=== PATIENT | male | born 1970 | race Caucasian/White ===

== ENCOUNTER 2019-05-10 07:51 | Day surgery (SDC) | payer SELFPAY ==
[~2019-05-10] VITALS: Ht 182.9 cm; Wt 87.0 kg
[2019-05-10] MEDS ORDERED: GLUCOPHAGE500 MG/TAB PO (08:17)
[2019-05-10] MEDS ORDERED: CANA300T PO (08:18)
[2019-05-10] MEDS ORDERED: LIPITOR 40MG TA40 MG PO (08:18)
[2019-05-10] MEDS ORDERED: VASCEPA0.5 GM PO (08:19)
[2019-05-10] MEDS ORDERED: LANTUS100 U/ML SQ (08:20)
[2019-05-10] MEDS ORDERED: MELATONIN5 M1 PO (08:22)
[2019-05-10 08:42] VITALS: BP 124/90; PULSE 72; TEMP 98
[2019-05-10] MEDS ORDERED: PRILOSEC 20MG20 MG PO (10:03)
[2019-05-10] MEDS ORDERED: AMOXICILLIN 50500 MG PO (10:04)
[2019-05-10] MEDS ORDERED: BIAXIN 500MG T500 MG PO (10:05)
[2019-05-10 10:15] VITALS: BP 125/84; PULSE 81; TEMP 97.9
--- NOTE | 2019-05-10 10:15 | NUR ---
Patient arrives back to [facility] alert, denies pain or nausea. Patient ambulates from cart to chair with standby assist and without any complications. Patient monitor applied, vitals stable. Patient's spouse at bedside. Patient given water (can swallow without any difficulties).
--- NOTE | 2019-05-10 10:25 | NUR ---
Dr Lu into see patient at this time.
[2019-05-10 10:30] VITALS: BP 127/84; PULSE 75
[2019-05-10 10:45] VITALS: BP 121/83; PULSE 69
--- NOTE | 2019-05-10 10:45 | NUR ---
Patient reports that he is feeling good and is able to drink water without any complications. Patient given pudding at this time. Vitals stable.
--- NOTE | 2019-05-10 11:05 | NUR ---
Dismissal instructions gone over with patient and patient's spouse. Both verbalize understanding and all questions answered.
--- NOTE | 2019-05-10 11:10 | NUR ---
Patient discharged to home via ambulation to patient enterance with spouse. Patient and spouse leave thanking staff for services.
== END 2019-05-10 11:10 | disposition home or self-care (01) ==
LOC: SDCO 07:51 → EDBD 10:00 → SDCO 10:00
DX: K21.0 Gastro-esophageal reflux disease with esophagitis (principal); K22.2 Esophageal obstruction; K44.9 Diaphragmatic hernia without obstruction or gangrene; K29.30 Chronic superficial gastritis without bleeding; K29.80 Duodenitis without bleeding; Z79.4 Long term (current) use of insulin
CPT/HCPCS: C1726; J2250; J3010; J7042

== ENCOUNTER → 2020-03-28 | Outpatient (CLI) | payer OTHER ==
[~2020-03-28] MED LIST: AMOXICILLIN 50500 MG PO; BIAXIN 500MG T500 MG PO; CANA300T PO; GLUCOPHAGE500 MG/TAB PO; LANTUS100 U/ML SQ; LIPITOR 40MG TA40 MG PO; MELATONIN5 M1 PO; PRILOSEC 20MG20 MG PO; VASCEPA0.5 GM PO
== END ==
LOC: COL.RAD 06:32
DX: R11.0 Nausea (principal)
CPT/HCPCS: A9541

== ENCOUNTER → 2020-04-17 | Outpatient (CLI) | payer OTHER | LOC: COL.RAD 13:36 | DX: E22.1 Hyperprolactinemia (principal) | CPT/HCPCS: A9585 ==

== ENCOUNTER 2020-08-29 09:00 | Emergency (ER) | payer OTHER ==
[~2020-08-29] VITALS: Ht 182.9 cm; Wt 93.6 kg
[2020-08-29 09:03] VITALS: TEMP 97
[2020-08-29 09:33] LABS: BASO # 0.1 (0.0-0.2); BASO % 0.7 % (0.0-2.0); EOS # 0.1 (0.0-0.7); EOS % 0.8 % (0-4.0); GRAN % 68.3 % (42.2-75.2); HEMATOCRIT 45.6 % (42.0-52.0); HEMOGLOBIN 15.5 g/dl (13.5-18.0); LYMPH % 22.8 % (20.0-51.0); MEAN CELL VOLUME 91 fl (80.0-100.0); MEAN CORPUSCULAR HEMOGLOBIN 31 pg (27.0-31.0); MEAN CORPUSCULAR HGB CONC 34 g/dl (33.0-37.0); MEAN PLATELET VOLUME 9.9 fl (7.4-10.4); MONO # 0.6 (0.1-0.6); MONO % 6.7 % (1.7-9.3); PLATELET COUNT 195 K/mm3 (130-400); RED BLOOD COUNT 4.99 M/mm3 (4.20-5.60); REDCELL DISTRIBUTION WIDTH-CV 13.1 % (11.5-14.5)
[2020-08-29 09:41] LABS: PROTHROMBIN TIME 10.6 SECONDS (9.7-12.8)
[2020-08-29 09:43] LABS: ALANINE AMINOTRANSFERASE 52 U/L (4-49); ALBUMIN 3.9 gm/dL (3.5-5.0); ALKALINE PHOSPHATASE 50 U/L (50-136); ANION GAP 10 mmol/L (7-16); AST,SGOT 41 U/L (15-37); BILIRUBIN,TOTAL 0.7 mg/dL (0.0-1.0); BLOOD UREA NITROGEN 17 mg/dL (9-20); CALCIUM 8.9 mg/dL (8.4-10.2); CARBON DIOXIDE 26 mmol/L (22-30); CHLORIDE 104 mmol/L (98-107); CREATININE, serum 0.83 (0.66-1.25); GLUCOSE 200 mg/dL (74-106); PARTIAL THROMBOPLASTIN TIME 31.2 SECONDS (26.0-37.0); POTASSIUM 4.1 mmol/L (3.4-5.0); SODIUM 140 mmol/L (137-145); TOTAL PROTEIN 6.3 gm/dL (6.4-8.2)
[2020-08-29 09:55] LABS: TROPONIN-I < 0.012 ng/mL (0.000-0.035)
[2020-08-29 15:48] VITALS: BP 132/93; PULSE 84
[2020-08-30] MEDS ORDERED: TOUJEO300 U/ML SQ (07:24)
[2020-08-30] MEDS ORDERED: CLOMID50 MG PO (07:28)
[2020-08-30] MEDS ORDERED: PRILOSEC 20MG20 MG PO (07:30)
== END 2020-08-29 15:15 | disposition home or self-care (01) ==
LOC: COL.ER 09:00
PROVIDERS: Family Medicine
DX: R07.89 Other chest pain (principal); E11.9 Type 2 diabetes mellitus without complications; Z79.4 Long term (current) use of insulin

== ENCOUNTER 2020-08-30 07:03 | Inpatient (IN) | payer OTHER ==
[~2020-08-30] VITALS: Ht 182.9 cm; Wt 88.2 kg
[2020-08-30] MEDS ORDERED: TOUJEO300 U/ML SQ (07:24)
[2020-08-30] MEDS ORDERED: CLOMID50 MG PO (07:28)
[2020-08-30] MEDS ORDERED: PRILOSEC 20MG20 MG PO (07:30)
[2020-08-30 07:31] VITALS: BP 154/89; PULSE 91
[2020-08-30 08:54] VITALS: BP 170/86; PULSE 81
[2020-08-30 08:56] VITALS: BP 177/92; PULSE 122
[2020-08-30 08:57] VITALS: BP 164/95; PULSE 108
[2020-08-30 08:58] VITALS: BP 160/91; PULSE 105
[2020-08-30 08:59] VITALS: BP 160/90; PULSE 102
[2020-08-31] VITALS (10 sets, daily range): BP systolic 120–151; BP diastolic 68–94; PULSE 79–95; TEMP 97.9–98.5
[2020-08-31] MEDS ORDERED: ERGOCALCIFER50000 IU PO (13:31)
[2020-08-31] MEDS ORDERED: PRIL40 PO (13:33)
[2020-08-31] MEDS ORDERED: TRULICITY1.5 MG/0.5 SQ (13:33)
[2020-08-31] MEDS ORDERED: LIPITOR 80MG80 MG PO (13:33)
[2020-08-31 14:19] LABS: BASO % 0.4 % (0.0-2.0); EOS # 0.1 (0.0-0.7); EOS % 0.8 % (0-4.0); GRAN # 7.6 (1.4-6.5); GRAN % 69.8 % (42.2-75.2); HEMATOCRIT 44.6 % (42.0-52.0); HEMOGLOBIN 15.3 g/dl (13.5-18.0); LYMPH # 2.4 (1.2-3.4); LYMPH % 22.5 % (20.0-51.0); MEAN CELL VOLUME 91 fl (80.0-100.0); MEAN CORPUSCULAR HEMOGLOBIN 31 pg (27.0-31.0); MEAN CORPUSCULAR HGB CONC 34 g/dl (33.0-37.0); MONO # 0.6 (0.1-0.6); MONO % 5.9 % (1.7-9.3); PLATELET COUNT 212 K/mm3 (130-400); RED BLOOD COUNT 4.93 M/mm3 (4.20-5.60)
[2020-08-31 14:21] LABS: PROTHROMBIN TIME 10.9 SECONDS (9.7-12.8)
[2020-08-31 14:31] LABS: PARTIAL THROMBOPLASTIN TIME 32.9 SECONDS (26.0-37.0)
[2020-08-31 14:38] LABS: ALBUMIN 4.1 gm/dL (3.5-5.0); BILIRUBIN,TOTAL 0.7 mg/dL (0.0-1.0); CALCIUM 9.4 mg/dL (8.4-10.2); CHOLESTEROL RISK RATIO 3.6; CREATININE, serum 0.81 (0.66-1.25); MAGNESIUM 1.8 mg/dL (1.6-2.3); POTASSIUM 4.4 mmol/L (3.4-5.0); TOTAL PROTEIN 6.5 gm/dL (6.4-8.2)
[2020-08-31 15:26] LABS: TROPONIN-I 0.18 ng/mL (0.000-0.035)
--- NOTE | 2020-08-31 16:30 | NUR ---
Patient alert and oriented. He was transported by EMS from Dr Kaur office after complaining of chest pain. Patient said he had a stress test done on the 08/30/20 which was positive. Patient denies any chest pain since admission. IV started on RA. Hepxa 0.00, PT 10.9, inr 1.0, ptt 32.9, Troponin I 0.180 Patient received 4,000units bolus with 1000units/hr drip rate. Patient signed consent for [facility], scheduled for today. Patient resting in bed at this time.
--- NOTE | 2020-08-31 19:48 | NUR ---
BEDSIDE shift report received. pt AOX4. denies chest pain. confirmed heart cath still on for tonight. NPO since 1800 yesterday per pt. denies chest pain, n/v, any pain. steady independent ambulation. picked up by labor relations representative @ 1949. IVF @ 30. heparin drip dc'd by labor relations representative nurse. no other coMplaints at this time. BG 89
--- NOTE | 2020-08-31 20:10 | NUR ---
SEE MERGE FOR ALL MEDICATION ADMINISTRATION TIMES, INTRA AND POST SEDATION ASSESSMENTS
--- NOTE | 2020-08-31 22:39 | NUR ---
PT returned from fish hatchery laborer around 2140 and starteed on post op vitals. rt femoral site with angioseal C/D/I gauze. pulses WNL. pt denies pain. bed flat. pt given sandwich pack and drinks. meds given. to remain on bedrest as ordered. VS stable as charted. will cont to monitor
--- NOTE | 2020-08-31 23:34 | NUR ---
2HR BEDREST COMPLETE @ 2330. PT RESTING IN BED. URINAL AT BEDSIDE. NO BLEEDING TO RT FEMORAL SITE. PT AWARE TO TAKE IT EASY. VS CHARTED
--- NOTE | 2020-08-31 23:37 | NUR ---
Midnight BG 160 but pt refused SSI due to worry may decrease further. ate dinner @ 2230 post heart cath. will recheck @ 0400 unless otherwise warranted.
[2020-09-01] VITALS (8 sets, daily range): BP systolic 128–140; BP diastolic 57–84; PULSE 65–88; TEMP 97.9–98.5
--- NOTE | 2020-09-01 00:34 | NUR ---
Post cath checks done. pt sleeping. site dressing C/D/I. NO hematoma noted/ will cont to monitor
--- NOTE | 2020-09-01 03:39 | NUR ---
SMALL AREA OF BLEEDING NOTED TO ANGIOSEAL DRESSING TO RT GROIN. MANUAL PRESSURE HELD. NO HEMATOMA NOTED TO SITE. SCANT TENDERNESS. PEDAL PULSES PALPABLE AND COLOR UNCHANGED. VS STABLE
--- NOTE | 2020-09-01 05:22 | NUR ---
Small bleeding area to rt femoral site unchanged. no hematoma noted. pt denies increased pain to site
--- NOTE | 2020-09-01 07:45 | NUR ---
shift report given to oncoming nurse Shy. both nurses assessed heart cath site. dressing saturation unchanged. pedal pulses palpable and color WNL. pt able to move leg
--- NOTE | 2020-09-01 09:19 | NUR ---
PATIENT ASSESSMENT COMPLETED. HE IS AWAKE IN BED. DENIES ANY PAIN WAS ABLE TO GET UP TO THE RESTROOM WITH LITTLE DISCOMFORT TO RIGHT FEMORAL AREA. NO FURTHER BLEEDING NOTED TO THIS AREA. BLOOD SPOT WAS CIRCLED FROM LAST NIGHT.
[2020-09-01 10:53] LABS: HEMATOCRIT 43.9 % (42.0-52.0); HEMOGLOBIN 15.1 g/dl (13.5-18.0); MEAN CELL VOLUME 92 fl (80.0-100.0); MEAN CORPUSCULAR HEMOGLOBIN 32 pg (27.0-31.0); MEAN CORPUSCULAR HGB CONC 34 g/dl (33.0-37.0); MEAN PLATELET VOLUME 10.1 fl (7.4-10.4); PLATELET COUNT 194 K/mm3 (130-400); RED BLOOD COUNT 4.78 M/mm3 (4.20-5.60); REDCELL DISTRIBUTION WIDTH-CV 13.3 % (11.5-14.5)
[2020-09-01 11:00] LABS: CALCIUM 9.2 mg/dL (8.4-10.2); CREATININE, serum 0.79 (0.66-1.25); MAGNESIUM 1.9 mg/dL (1.6-2.3)
[2020-09-01] MEDS ORDERED: BRILINTA90 MG PO (11:23)
[2020-09-01] MEDS ORDERED: ASPIRIN 81M81 MG/TA2 PO (11:24)
[2020-09-01] MEDS ORDERED: NITROSTAT0.4 MG/TAB SL (11:24)
[2020-09-01 11:32] LABS: EOSINOPHIL 1 % (0-4); NEUTROPHILS 75 % (42.0-75.2); PLATELET ESTIMATE NORMAL (NORMAL)
[2020-09-01] MEDS ORDERED: TOPROL XL 25MG25 MG PO (11:32)
[2020-09-01 11:33] LABS: LYMPHOCYTE 18 % (20.0-51.0)
--- NOTE | 2020-09-01 12:47 | NUR ---
Wash [employer] Cooler Operator offered prayer and support with patient.
--- NOTE | 2020-09-01 13:45 | NUR ---
PATIENT DISCHARGED TO HOME WITH BELONGINGS. HE DOES HAVE SOME DISCOMFORT TO THE RIGHT GROIN SITE ENCOURAGED ICE WHEN HE GETS HOME. INSTRUCTIONS HAVE BEEN REVIEWED HE DENIES FURTHER QUESTIONS AND WILL MAKE FOLLOW UPS ORDERED. NO FURTHER QUESTIONS AT THIS TIME.
--- NOTE | 2020-09-01 15:25 | NUR ---
SW met with patient to complete discharge. Patient stated that he lived in [place] with his [place] [phone]. Patient stated that he does not utilize any DME and is independent with ADL's. Patient states that is PCP is Dr. Mendiola, obtains medications from [facility] and is able to afford his medications at this time. Patient states that he does not wish to appoint anyone as his DPOA-HC at this time. Patient states that he plans to go back to his home upon DC. SW will continue to follow.
== END 2020-09-01 13:45 | disposition home or self-care (01) | DRG 247 ==
LOC: COL.CARD 07:03 → MEDICAL 08-31 11:46
PROVIDERS: Internal Medicine Adult Congenital Heart Disease; Physician Assistant
PROC: 027034Z Dilation of Coronary Artery, One Artery with Drug-eluting Intraluminal Device, Percutaneous Approach (ICD-10-PCS; principal; 2020-08-31)
PROC: 4A023N7 Measurement of Cardiac Sampling and Pressure, Left Heart, Percutaneous Approach (ICD-10-PCS; 2020-08-31)
PROC: B2111ZZ Fluoroscopy of Multiple Coronary Arteries using Low Osmolar Contrast (ICD-10-PCS; 2020-08-31)
DX: I21.4 Non-ST elevation (NSTEMI) myocardial infarction (principal); E11.9 Type 2 diabetes mellitus without complications; K21.9 Gastro-esophageal reflux disease without esophagitis; E78.5 Hyperlipidemia, unspecified; G25.81 Restless legs syndrome; E11.43 Type 2 diabetes mellitus with diabetic autonomic (poly)neuropathy; K31.84 Gastroparesis; E55.9 Vitamin D deficiency, unspecified; Z90.89 Acquired absence of other organs; Z79.4 Long term (current) use of insulin
CPT/HCPCS: 99222-AI; A9500; C1725; C1760; C1769; C1874; C1887; C1894; C9600; J1644; J1815; J2250; J2785; J3010; J7030; Q9967

== ENCOUNTER 2020-11-05 13:39 | Outpatient (RCR) | payer OTHER ==
[~2020-11-05 13:39] MED LIST changes: +ASPIRIN 81M81 MG/TA2 PO; +BRILINTA90 MG PO; +CLOMID50 MG PO; +ERGOCALCIFER50000 IU PO; +LIPITOR 80MG80 MG PO; +NITROSTAT0.4 MG/TAB SL; +PRIL40 PO; +TOPROL XL 25MG25 MG PO; +TOUJEO300 U/ML SQ; +TRULICITY1.5 MG/0.5 SQ
== END 2020-11-08 15:30 | disposition home or self-care (01) ==
LOC: COL.CR 13:39
DX: Z48.812 Encounter for surgical aftercare following surgery on the circulatory system (principal); Z98.61 Coronary angioplasty status; I25.10 Atherosclerotic heart disease of native coronary artery without angina pectoris